=== PATIENT | female | born 1985 | race African-American/Black ===

== ENCOUNTER → 2017-07-21 | Day surgery (SDC) | payer OTHER ==
[~2017-07-21] VITALS: Ht 188 cm; Wt 136.1 kg
[~2017-07-21] MED LIST: AMITIZA24 MC1; BENTYL10 MG PO; BIOTIN800 MCG PO; HYCET 7.5 MG-3473 ML PO; MELOXICAM15 M1 PO; MOBIC15 M1 PO; NORCO 325 MG-51 TAB PO; OXYCODONE-ACET1 EAC1 PO; PANTOPRAZOLE SO40 M1 PO; PERCOCET 325 MG1 TA2 PO; PERCOCET 5-3251 EACH PO; POLYTRIM O200 GTT/BO IO; PRISTIQ ER50 MG PO; SEROQUEL100 M1 PO; SEROQUEL200 M1 PO; SEROQUEL300 M1 PO; SYNTHROID75 MCG PO; TESTOSTERO200 MG/1 M INJ; VITAMIN D250000 UNIT PO; XANAX1 M1 PO; ZOFRAN4 M1 SL
[2017-07-21 13:03] LABS: ABSOLUTE BASOPHIL COUNT 0 /CUMM (0.0-0.2); ABSOLUTE EOSINOPHIL COUNT 0.1 /CUMM (0.0-0.7); ABSOLUTE GRANULOCYTE CT 3.7 /CUMM (1.4-6.5); ABSOLUTE LYMPH COUNT 1.2 /CUMM (1.2-3.4); ABSOLUTE MONOCYTE COUNT 0.5 /CUMM (0.10-0.60); BASOPHIL % 0.4 % (0.0-2.0); EOSINOPHIL % 1.3 % (0-5); GRANULOCYTE % 67.4 % (42.2-75.2); HEMATOCRIT 37.4 % (37-47); MEAN CORPUSCULAR HGB 25.4 PG (27.0-31.0); MEAN CORPUSCULAR HGB CONC 32.2 G/DL (33.0-37.0); MEAN PLATELET VOLUME 7.9 FL (7.4-10.4); PLATELET COUNT 276 /CUMM (130-400); RBC DISTRIBUTION WIDTH 13.9 % (11.5-14.5); RED BLOOD CELL CT 4.74 /CUMM (4.20-5.40); WHITE BLOOD CELL COUNT 5.5 /CUMM (4.8-10.8)
--- NOTE | 2017-07-21 19:57 | Operative Report ---
Operative/Inv Procedure Report Surgery Date: 07/21/17 Name of Procedure: Female to male breast surgery free nipple graft liposuction axilla lateral chest inframammary fold Pre-Operative Diagnosis: gender dysphoria Post-Operative Diagnosis: Name Estimated Blood Loss: scant (200) Surgeon/[employer] Manager: Timothy Tucker MD Anesthesia: general endotracheal tube Operative/Procedure Note Note: She was counseled extensively in regards to the procedure the alternatives risks and the expected outcomes as relates to request for surgical intervention for female to male chest surgery. This includes the free nipple technique with definite visible scarring along the inframammary fold and lateral chest. We talked specifically about the risks which included but were not limited to infection bleeding pain numbness loss of tissue loss of nipple graft color and/ or tissue definite visible scarring possibly unsightly or symptomatic trees and the soft tissue well as needs for additional surgery. Vision recently reportedly had a suicidal event and I specifically discussed this with the patient and she stated unequivocally that it was not reveal she has no thoughts of hurting herself or anyone else. This was over blown due to an argument she had with her girlfriend. Today this patient states she is feeling well mentally and physically. She was marked in the standing position. Informed consent after additional discussion. She was brought to the operating room placed supine on the table. Venodyne boots are placed general endotracheal anesthesia was established and 3 g of intravenous antibiotics were given. Chest reprepped and draped in usual sterile fashion. Incision was made approximately 1 cm above the inframammary fold and a subcutaneous mastectomy was performed. The skin fat flap was pulled down on the gentle tension and marked. The resection was carried laterally to the lateral edge of the pectoralis muscle. Tumescent fluid was placed in the anterior axillary fold and lateral chest and axilla. Liposuction was carried out on both sides as well as the inframammary fold which was surgically released and excised. 3 layers of tension-free closure was carried out of the incision after placing a #15 Georgian drain. She was put in the sitting position where multiple and repeated measurements were taken including adjustments as needed for the nipple position based on patient's size. 25 mm dimension was used. Tie-over bolster dressing was placed after defatting and fixing at the periphery. Dictation
== END ==
LOC: STS 01:27
PROVIDERS: Surgery Plastic and Reconstructive Surgery
DX: F64.9 Gender identity disorder, unspecified (principal); E03.9 Hypothyroidism, unspecified; E66.01 Morbid (severe) obesity due to excess calories; Z68.38 Body mass index [BMI] 38.0-38.9, adult; Z98.84 Bariatric surgery status; M54.9 Dorsalgia, unspecified
CPT/HCPCS: 36415; 81025; C9399; J0171; J0690; J2250; Q9968